=== PATIENT | female | born 1955 | race Caucasian/White ===

== ENCOUNTER 2018-03-12 16:03 | Emergency (ER) | payer MEDICARE, OTHER ==
[2018-03-12 16:19] VITALS: RESP 18; TEMP 97.4
[2018-03-12] MEDS ORDERED: SODIUM CHLORIDE 0.9% 500 ML IV STA (16:42)
--- NOTE | 2018-03-12 16:47 | ED ---
General Adult HPI - General Chief complaint: Syncope Stated complaint: Syncope Time Seen by Provider: 03/12/18 16:30 Source: patient, family, RN notes reviewed Mode of arrival: ambulatory Limitations: no limitations - History of Present Illness Initial comments: Chief complaint and history of present illness this is a 62-year-old female here with family. The patient reports that while going to the bathroom she had an episode of near-syncope. She states that she had just taken her blood pressure pill approximate 30 minutes earlier. She had a large soft bowel movement without pain. Became diaphoretic palpation but felt slightly dizzy and almost passed out but she did not pass out. Denies any headache. Since then she's been fine. Patient reports some blood pressure pills not because of hypertension because she had a past history of mild carditis. And her physician has her on a blood pressure pill for cardiac protection. She states she does not think she should be on the pill patient arrived emergency room with a blood pressure 104/55. EKG had been done on rhythm strip by EMS showed normal sinus rhythm. Patient's alert and oriented. - Related Data Home Medications Medication Instructions Recorded Confirmed Aspirin 325 mg PO DAILY 03/12/18 03/12/18 Carvedilol [Coreg] 25 mg PO BID 03/12/18 03/12/18 Furosemide [Lasix] 20 mg PO DAILY 03/12/18 03/12/18 Simvastatin [Zocor] 40 mg PO HS 03/12/18 03/12/18 Allergies Allergy/AdvReac Type Severity Reaction Status Date / Time azithromycin [From Zithromax] Allergy Unknown Verified 03/12/18 16:19 prednisone Allergy Unknown Verified 03/12/18 16:19 Sulfa (Sulfonamide Allergy Unknown Verified 03/12/18 16:19 Antibiotics) Review of Systems ROS Statement: Those systems with pertinent positive or pertinent negative responses have been documented in the HPI. Review of systems no headache no visual acuity changes no chest pain or palpitations no shortness of breath no GI/ problems. No pain. No neuro deficits. All systems are reviewed. Past medical problems significant for myocarditis and a lung ailment that may be related to asbestosis. The patient does not take any medications for this. She takes blood pressure pill for heart protection not because she has high blood pressure. Her surgeries include tubal ligation followed by total hysterectomy, and appendectomy. Family history sister had rectal of lung cancer. Patient has ALLERGIES to azithromycin, prednisone and sulfa. Patient nonsmoker nondrinker. ROS Other: All systems not noted in ROS Statement are negative. Past Medical History Additional Past Medical History / Comment(s): myocarditis, lung condition ( unsure what its called) History of Any Multi-Drug Resistant Organisms: None Reported Past Surgical History: Appendectomy, Hysterectomy, Tubal Ligation Past Psychological History: No Psychological Hx Reported Smoking Status: Never smoker Past Alcohol Use History: None Reported Past Drug Use History: None Reported General Exam - General Exam Comments Initial Comments: General: The patient is awake and alert, in no distress, and does not appear acutely ill. Patient had a near syncopal episode at home while going to the bathroom. Feels better now. Vital signs temperature 97.4 pulse 73 respiratory rate 18 pulse ox 95% room air blood pressure initially 104/55. At this time examination was 124/64. Eye: Pupils are equal, round and reactive to light, extra-ocular movements are intact ; there is normal conjunctiva bilaterally. No signs of icterus. Ears, nose, mouth and throat: There are moist mucous membranes and no oral lesions. Neck: The neck is supple, there is no tenderness, no carotid bruit, no anterior cervical lymphadenopathy. Cardiovascular: There is a regular rate and rhythm. No murmur, rub or gallop is appreciated. Respiratory: Lungs are clear to auscultation, respirations are non-labored, breath sounds are equal. No wheezes, stridor, rales, or rhonchi. Gastrointestinal: Soft, non-distended, non-tender abdomen without masses or organomegaly noted. There is no rebound or guarding present. No CVA tenderness. Bowel sounds are unremarkable. Back: No back pain. Musculoskeletal: Normal ROM, no tenderness, There is no pedal edema. There is no calf tenderness or swelling. Sensation intact. Pulses equal bilaterally 2+. Neurological: CN II-XII intact, There are no obvious motor or sensory deficits. Coordination appears grossly intact. Speech is normal. No focal or lateralizing findings Skin: Skin is warm and dry and no rashes or lesions are noted. Psychiatric: Cooperative, appropriate mood & affect, normal judgment. Limitations: no limitations Course Vital Signs 03/12/18 03/12/18 16:10 17:01 Temperature 97.4 F L Pulse Rate 73 Pulse Rate [ 88 Right Sitting Pulse Oximetery ] Pulse Rate [ 92 Right Standing Pulse Oximetery ] Pulse Rate [ 86 Right Supine Pulse Oximetery ] Respiratory 18 Rate Blood Pressure 104/55 Blood Pressure 124/60 [Right Arm Sitting] Blood Pressure 124/58 [Right Arm Standing] Blood Pressure 116/57 [Right Arm Supine] O2 Sat by Pulse 95 Oximetry EKG Findings - EKG Comments: EKG Findings:: EKG was done and reviewed at 1657 showing normal sinus rhythm no acute ST elevation no ectopy. Patient has no complaints. Rate 88 AK interval is 202 QRS 90 QT 386 QTc 467. No old EKG to compare to. Medical Decision Making - Medical Decision Making Medical decision making; this is a 62-year-old female here with family. The patient reports she had a near syncopal episode half hour after taking a blood pressure pill and while on the toilet. Patient states she feels better now. There was no loss of consciousness no neuro deficits. Patient is alert. Patient's labs show white count of 7 hemoglobin 13.7 hematocrit of 40 with a potassium 4.9. BUN 19 creatinine 1.0 the GFR was 61. Glucose 194. Patient received hydration while in emergency room. EKG did not show any acute ST elevation The patient's chest x-ray is done reviewed radiologist his findings are the heart size is upper limits of normal. Pulmonary vasculature is somewhat prominent. There is diffuse increased lung markings. This could be related to some mild volume overload or early pulmonary edema. Impression clinical correlation recommended for mild via overload or early edema. As read by Dr. Rafael ford. Patient points out that she has diagnosis of a pulmonary problems associated with possible asbestosis. She has not have CHF. Clinically not evident. Lungs are clear to auscultation. Patient does see a dairy laboratory technician for the same problem. Patient aware of her problem. Patient's feeling better vital signs are stable orthostatics normal limits. Advised to change positions slowly. When she feels dizzy to sit down immediately. Discuss her medications with her doctor and wood repatcher. Return emergency room as needed - Lab Data Result diagrams: 03/12/18 16:24 03/12/18 16:24 Lab Results 03/12/18 03/12/18 03/12/18 Range/Units 16:24 16:24 16:24 WBC 7.0 (3.8-10.6) k/uL RBC 4.57 (3.80-5.40) m/uL Hgb 13.7 (11.4-16.0) gm/dL Hct 40.4 (34.0-46.0) % MCV 88.3 (80.0-100.0) fL MCH 30.0 (25.0-35.0) pg MCHC 34.0 (31.0-37.0) g/dL RDW 13.0 (11.5-15.5) % Plt Count 260 (150-450) k/uL Neutrophils % 77 % Lymphocytes % 13 % Monocytes % 4 % Eosinophils % 4 % Basophils % 1 % Neutrophils # 5.4 (1.3-7.7) k/uL Lymphocytes # 0.9 L (1.0-4.8) k/uL Monocytes # 0.3 (0-1.0) k/uL Eosinophils # 0.3 (0-0.7) k/uL Basophils # 0.0 (0-0.2) k/uL Sodium 141 (137-145) mmol/L Potassium 4.9 (3.5-5.1) mmol/L Chloride 105 (98-107) mmol/L Carbon Dioxide 24 (22-30) mmol/L Anion Gap 12 mmol/L BUN 19 H (7-17) mg/dL Creatinine 1.00 (0.52-1.04) mg/dL Est GFR (CKD-EPI)AfAm 70 (>60 ml/min/1.73 sqM) Est GFR (CKD-EPI)NonAf 61 (>60 ml/min/1.73 sqM) Glucose 194 H (74-99) mg/dL Calcium 8.9 (8.4-10.2) mg/dL Total Bilirubin 0.4 (0.2-1.3) mg/dL AST 26 (14-36) U/L ALT 34 (9-52) U/L Alkaline Phosphatase 44 (38-126) U/L Total Creatine Kinase 40 (30-135) U/L CK-MB (CK-2) <0.2 (0.0-2.4) ng/mL CK-MB (CK-2) Rel Index Troponin I <0.012 (0.000-0.034) ng/mL Total Protein 6.5 (6.3-8.2) g/dL Albumin 3.5 (3.5-5.0) g/dL Disposition Clinical Impression: Vasovagal near syncope Disposition: HOME SELF-CARE Condition: Fair Instructions: Syncope (ED), Hypotension (ED) Additional Instructions: Stay hydrated, change positions slowly. Follow up with your family physician, and her wood repatcher concerning medications. Is patient prescribed a controlled substance at d/c from ED?: No Referrals: None,Stated [Primary Care Provider] - 1-2 days
[2018-03-12 17:00] LABS: Basophils % (A) 1 %; Eosinophils # (A) 0.3 k/uL (0-0.7); Eosinophils % (A) 4 %; HCT 40.4 % (34.0-46.0); HGB 13.7 gm/dL (11.4-16.0); Lymphocytes # (A) 0.9 k/uL (1.0-4.8); Lymphocytes % (A) 13 %; MCV 88.3 fL (80.0-100.0); Mean Platelet Volume 7.5; Monocytes # (A) 0.3 k/uL (0-1.0); Monocytes % (A) 4 %; Neutrophils # (A) 5.4 k/uL (1.3-7.7); Neutrophils % (A) 77 %; Platelet Count 260 k/uL (150-450); RBC 4.57 m/uL (3.80-5.40)
[2018-03-12 17:10] LABS: Albumin 3.5 g/dL (3.5-5.0); Calcium 8.9 mg/dL (8.4-10.2); Potassium 4.9 mmol/L (3.5-5.1); Total Bilirubin 0.4 mg/dL (0.2-1.3); Total Protein 6.5 g/dL (6.3-8.2)
[2018-03-12 17:13] LABS: Creatine Kinase 40 U/L (30-135)
--- NOTE | 2018-03-12 17:24 | XR ---
EXAMINATION TYPE: XR chest 2V DATE OF EXAM: 03/12/2018 COMPARISON: NONE INDICATION: TECHNIQUE: Frontal and lateral views of the chest are obtained. FINDINGS: The heart size is upper limits of normal.. The pulmonary vasculature is somewhat prominent. There is diffuse increased lung markings. This could be related to some mild volume overload or early pulmonary edema.. IMPRESSION: 1. Clinical correlation recommended for mild volume overload or early edema.
[2018-03-12 17:27] LABS: Creatine Kinase MB <0.2 ng/mL (0.0-2.4); Troponin I <0.012 ng/mL (0.000-0.034)
[2018-03-12 18:42] VITALS: BP 136/60; PULSE 90
== END 2018-03-12 18:39 | disposition home or self-care (01) ==
LOC: EC 16:03
DX: R55 Syncope and collapse (principal); R61 Generalized hyperhidrosis; Z86.79 Personal history of other diseases of the circulatory system; Z90.49 Acquired absence of other specified parts of digestive tract; Z90.710 Acquired absence of both cervix and uterus; Z98.51 Tubal ligation status; Z79.82 Long term (current) use of aspirin; Z79.899 Other long term (current) drug therapy; Z88.1 Allergy status to other antibiotic agents; Z88.2 Allergy status to sulfonamides; Z88.8 Allergy status to other drugs, medicaments and biological substances
CPT/HCPCS: 36415; 71046; 80053; 82550; 82553; 84484; 85025; 93005; 96360; 99285